=== PATIENT | female | born 1970 | race Hispanic/Latino ===

== ENCOUNTER 2017-10-13 12:23 | Outpatient (CLI) | payer BC | END 2017-10-13 12:24 | disposition home or self-care (01) | LOC: BICMAMMO 12:23 | PROVIDERS: ATTEND Family Medicine | DX: Z12.31 Encounter for screening mammogram for malignant neoplasm of breast (principal); Z80.3 Family history of malignant neoplasm of breast | CPT/HCPCS: 77063; 77067 ==

== ENCOUNTER 2018-06-07 12:39 | Outpatient (CLI) | payer BC ==
--- NOTE | 2018-06-07 13:51 | MRI ---
MR ANGIOGRAM OF THE [place] OF [place]: HISTORY: Headache. Evaluate for possible aneurysm. COMPARISON: None. TECHNIQUE: An MR angiogram of the [place] is performed in the axial plane. Three-dimensional maximum i ntensity projection images are submitted for interpretation. FINDINGS: Symmetric flow-related signal and bilateral intracranial internal carotid arteries. Anterior circulation: Symmetric flow-related signal in the A1 and M1 segments. The anterior communi cating artery has a flow-relate signal. The proximal A2 segment and the proximal MCA branches have a ppropriate flow-related signal. No evidence of aneurysm at the left or right MCA trifurcation. Posterior circulation: The right vertebral artery has a PICA termination. The visualized left verte bral artery has appropriate flow-related signal and is the sole supplying vessel to the basilar arter y. The left PICA artery origin is inadequately demonstrated on this exam. The basilar artery and sarah th left and right P1 segments have appropriate flow-related signal. No evidence of an aneurysm in th e posterior circulation. IMPRESSION: No evidence of aneurysm. POS: [facility]
--- NOTE | 2018-06-07 14:16 | MRI ---
BRAIN MRI NONCONTRAST: INDICATION: Headache, N35.9, connective tissue. FINDINGS: There is no ventriculomegaly, mass effect, midline shift, or acute territorial infarction. No hemorr hagic susceptibility is seen within the brain parenchyma. The visualized skull base flow voids are p atent. There are a few foci of signal alteration of the cerebral parenchyma, of doubtful clinical si gnificance. IMPRESSION: 1. No acute intracranial abnormalities. 2. There are a few scattered foci of signal alteration of the cerebral white matter. This could rel ate to minimal chronic ischemic disease. POS: [facility]
== END 2018-06-07 12:40 | disposition home or self-care (01) ==
LOC: TBSIIMAG 12:39
PROVIDERS: ATTEND Neurological Surgery
DX: M35.9 Systemic involvement of connective tissue, unspecified (principal); R51 Headache; R90.82 White matter disease, unspecified
CPT/HCPCS: 70544; 70551

== ENCOUNTER 2018-10-22 12:17 | Outpatient (CLI) | payer BC ==
--- NOTE | 2018-10-22 13:02 | MMO ---
Bilateral MAMMO Bilat Screen [facility]. CLINICAL HISTORY: Patient is 48 years old and is seen for screening. The patient has no personal history of cancer. VIEWS: The views performed were: bilateral craniocaudal with tomosynthesis and bilateral mediolateral oblique with tomosynthesis. FILMS COMPARED: The present examination has been compared to prior imaging studies performed at [facility] on 09/27/2007, 04/05/2012, 03/08/2016 and 10/13/2017. MAMMOGRAM FINDINGS: There are scattered fibroglandular densities. There are no suspicious masses, suspicious calcifications, or new areas of architectural distortion. IMPRESSION: THERE IS NO MAMMOGRAPHIC EVIDENCE OF MALIGNANCY. A ROUTINE FOLLOW-UP MAMMOGRAM IN 1 YEAR IS RECOMMENDED. THE RESULTS OF THIS EXAM WERE SENT TO THE PATIENT. ACR BI-RADS Category 1 - Negative MAMMOGRAPHY NOTE: 1. A negative mammogram report should not delay a biopsy if a dominant of clinically suspicious mass is present. 2. Approximately 10% to 15% of breast cancers are not detected by mammography. 3. Adenosis and dense breasts may obscure an underlying neoplasm.
== END 2018-10-22 12:18 | disposition home or self-care (01) ==
LOC: BICMAMMO 12:17
PROVIDERS: ATTEND Family Medicine
DX: Z12.31 Encounter for screening mammogram for malignant neoplasm of breast (principal)
CPT/HCPCS: 77063; 77067

== ENCOUNTER 2021-10-26 13:48 | Outpatient (CLI) | payer BC | END 2021-10-26 13:49 | disposition home or self-care (01) | LOC: BICMAMMO 13:48 | PROVIDERS: ATTEND Family Medicine | DX: Z12.31 Encounter for screening mammogram for malignant neoplasm of breast (principal); Z13.820 Encounter for screening for osteoporosis; M85.851 Other specified disorders of bone density and structure, right thigh; M85.852 Other specified disorders of bone density and structure, left thigh; Z80.3 Family history of malignant neoplasm of breast; Z82.62 Family history of osteoporosis | CPT/HCPCS: 77063; 77067; 77080 ==

== ENCOUNTER 2022-08-30 14:49 | Outpatient (CLI) | payer BC | END 2022-08-30 14:50 | disposition home or self-care (01) | LOC: RAD 14:49 | PROVIDERS: ATTEND Internal Medicine Nephrology | DX: M54.2 Cervicalgia (principal); M19.90 Unspecified osteoarthritis, unspecified site; N20.0 Calculus of kidney; Q61.2 Polycystic kidney, adult type; N39.0 Urinary tract infection, site not specified; E03.9 Hypothyroidism, unspecified; I13.10 Hypertensive heart and chronic kidney disease without heart failure, with stage 1 through stage 4 chronic kidney disease, or unspecified chronic kidney disease; N18.9 Chronic kidney disease, unspecified; D63.1 Anemia in chronic kidney disease; K57.90 Diverticulosis of intestine, part unspecified, without perforation or abscess without bleeding; M47.812 Spondylosis without myelopathy or radiculopathy, cervical region | CPT/HCPCS: 72040 ==